=== PATIENT | male | born 1970 | race Hispanic/Latino ===

== ENCOUNTER 2018-01-05 05:46 | Emergency (ER) | payer OTHER ==
[2018-01-05 05:51] VITALS: O2SAT 96
[2018-01-05] MEDS ORDERED: DiphenhydrAMINE 50 mg/ml Inj ONE (05:59)
[2018-01-05] MEDS ORDERED: Sodium Chloride 0.9% 1,000 ML IV STA (06:09)
[2018-01-05] MEDS ORDERED: DiphenhydrAMINE 50 mg/ml Inj IVP STA (06:09)
--- NOTE | 2018-01-05 06:38 | ED PDOC ---
HPI: General Adult Time Seen by Provider: 01/05/18 05:48 Chief Complaint (Nursing): ENT Problem Chief Complaint (Provider): Throat Swelling History Per: Patient History/Exam Limitations: no limitations Onset/Duration Of Symptoms: Other (prior to arrival) Current Symptoms Are (Timing): Still Present Additional Complaint(s): 47 y/o male with a PMHx of HTN presenting for evaluation of throat swelling and resolved difficulty breathing prior to arrival. Patient states 2 days ago he was in [place] eating shellfish and this morning he was awoken because due to throat swelling and difficulty breathing. Patient reports his difficulty breathing has improved upon arrival to the ER. Patient denies any known allergies or new exposures besides the shellfish. Patient denies any current shortness of breath, or rash. PCP: Dr. Jimenes ([facility]) Past Medical History Reviewed: Historical Data, Nursing Documentation, Vital Signs Vital Signs: Last Vital Signs Temp 97.8 F 01/05/18 13:02 Pulse 79 01/05/18 13:02 Resp 20 01/05/18 13:02 BP 110/74 01/05/18 13:02 Pulse Ox 96 01/05/18 13:02 - Medical History PMH: HTN Denies: Asthma, Diabetes - Surgical History Surgical History: No Surg Hx - Family History Family History: States: Unknown Family Hx - Home Medications Home Medications: Ambulatory Orders Medication Instructions Recorded Valsartan [Valsartan] 11/19/15 Clindamycin [Cleocin] 300 mg PO QID 7 Days cap 01/05/18 Ibuprofen [Motrin] 600 mg PO TID 7 Days tab 01/05/18 predniSONE [predniSONE Tab] 20 mg PO BID 5 Days tab 01/05/18 - Allergies Allergies/Adverse Reactions: Allergies Allergy/AdvReac Type Severity Reaction Status Date / Time No Known Allergies Allergy Verified 12/11/15 07:31 Review of Systems ROS Statement: Except As Marked, All Systems Reviewed And Found Negative ENT: Positive for: Throat Swelling Respiratory: Negative for: Shortness of Breath Skin: Negative for: Rash Physical Exam - Reviewed Nursing Documentation Reviewed: Yes Vital Signs Reviewed: Yes - Physical Exam Appears: Positive for: Well, Non-toxic, No Acute Distress Head Exam: Positive for: ATRAUMATIC, NORMAL INSPECTION, NORMOCEPHALIC Skin: Positive for: Normal Color, Warm, Dry. Negative for: Rash Eye Exam: Positive for: EOMI, Normal appearance, PERRL ENT: Positive for: Other (mild uvular edema) Neck: Positive for: Normal, Painless ROM, Supple Cardiovascular/Chest: Positive for: Regular Rate, Rhythm. Negative for: Murmur Respiratory: Positive for: Normal Breath Sounds. Negative for: Respiratory Distress Gastrointestinal/Abdominal: Positive for: Normal Exam, Soft. Negative for: Tenderness Back: Positive for: Normal Inspection. Negative for: L CVA Tenderness, R CVA Tenderness, Vertebral Tenderness Extremity: Positive for: Normal ROM. Negative for: Pedal Edema, Deformity Neurologic/Psych: Positive for: Alert, Oriented. Negative for: Motor/Sensory Deficits - Laboratory Results Result Diagrams: 01/05/18 06:57 01/05/18 06:57 - ECG O2 Sat by Pulse Oximetry: 96 (RA) Pulse Ox Interpretation: Normal Medical Decision Making Medical Decision Making: A/P: 47 y/o male with a PMHx of HTN presenting with mild uvular swelling -Unclear if allergic reaction, possible viral or bacterial infection -Patient has no signs of anaphylaxis or imminent risk of airway compromise -Will provide Solu-Medrol, Benadryl, and reevaluate 07:[address] Kessler pending reevaluation ----- Scribe Attestation: Documented by Mauricio Jerome, acting as a scribe for aVldez Tavares MD. Provider Scribe Attestation: All medical record entries made by the Scribe were at my direction and personally dictated by me. I have reviewed the chart and agree that the record accurately reflects my personal performance of the history, physical exam, medical decision making, and the department course for this patient. I have also personally directed, reviewed, and agree with the discharge instructions and disposition. Disposition - Clinical Impression Clinical Impression: Uvulitis - Patient ED Disposition Is Patient to be Admitted: Transfer of Care - Disposition Referrals: Anthony Goncalves MD [Staff Provider] - 01/06/18 Disposition: Transfer of Care Disposition Time: 07:00 Condition: STABLE Additional Instructions: Return if not better in 3 days. Prescriptions: Clindamycin [Cleocin] 300 mg PO QID 7 Days cap Ibuprofen [Motrin] 600 mg PO TID 7 Days tab predniSONE [predniSONE Tab] 20 mg PO BID 5 Days tab Forms: [employer] (Peruvian), [facility] ED School/Work Excuse Patient Signed Over To: Rafa Kessler Handoff Comments: pending reevaluation
[2018-01-05 07:07] LABS: BASO # 0.1 K/uL (0.0-0.2); BASO % 0.8 % (0.0-2.0); EOS # 0.1 K/uL (0.0-0.7); EOS % 1.9 % (0.0-4.0); HEMOGLOBIN 15.9 g/dL (12.0-18.0); LYMPH # 2.1 K/uL (1.0-4.3); MEAN CELL VOLUME 88.9 fl (80.0-94.0); MEAN CORPUSCULAR HEMOGLOBIN 29.9 pg (27.0-31.0); MEAN CORPUSCULAR HGB CONC 33.6 g/dL (33.0-37.0); MEAN PLATELET VOLUME 8.6 fl (7.2-11.7); MONO # 0.6 K/uL (0.0-0.8); MONO % 8.9 % (0.0-10.0); NEUT # 3.7 K/uL (1.8-7.0); NEUT % 56.4 % (50.0-75.0); NRBC % 0.1 % (0.0-0.0); RBC 5.31 Mil/uL (4.40-5.90); RED CELL DISTRIBUTION WIDTH 13.5 % (11.5-14.5); WHITE BLOOD COUNT 6.5 K/uL (4.8-10.8)
[2018-01-05 07:12] LABS: BLOOD UREA NITROGEN 23 mg/dl (9-20); CALCIUM 9.2 mg/dL (8.4-10.2); GFR AFRICAN-AMERICAN > 60; GFR NON-AFRICAN AMERICAN > 60
--- NOTE | 2018-01-05 07:43 | ED PDOC ---
- Laboratory Results Result Diagrams: 01/05/18 06:57 01/05/18 06:57 Interpretation Of Abn Labs: 23 bun - ECG O2 Sat by Pulse Oximetry: 96 (RA) Pulse Ox Interpretation: Normal - CT Scan/US ct Other Rad Studies (CT/US): Read By Radiologist Other Rad Interpretation: no acute - Progress ED Course And Treament: 700: Took over care from Dr. Tavares. Ramírez on labs and imaging. Here with swelling of uvula. Stable and breathing well. No distress. Improved significantly from initial symptoms. 846: Feels better. Uvula mild enlarged. Will ct to identify if any further underlying inflammation. Spoke with Dr. Goncalves. States to dc with steroids and antibiotics if ct neg. 1240: Stable. AAOx3. Pain free. Had food and swallowed with no issues. No numbness or tingles. Disposition Counseled Patient/Family Regarding: Studies Performed, Diagnosis, Need For Followup, Rx Given - Clinical Impression Clinical Impression: Uvulitis - POA Present On Arrival: None - Disposition Referrals: Anthony Goncalves MD [Staff Provider] - 01/06/18 Disposition: Routine/Home Disposition Time: 12:49 Condition: STABLE Additional Instructions: Return if not better in 3 days. Prescriptions: Clindamycin [Cleocin] 300 mg PO QID 7 Days cap Ibuprofen [Motrin] 600 mg PO TID 7 Days tab predniSONE [predniSONE Tab] 20 mg PO BID 5 Days tab Forms: [employer] (Cameroonian), [facility] ED School/Work Excuse
[2018-01-05] MEDS ORDERED: Iohexol 300 100 ML IJ ONE (11:00)
[2018-01-05] MEDS ORDERED: Sodium Chloride 0.9% 50 ML IV ONE (11:00)
--- NOTE | 2018-01-05 12:11 | RAD ---
Date of service: 01/05/2018 PROCEDURE: Soft tissue neck HISTORY: Uvular swelling, r/o supraglottitis COMPARISON: No prior study available for comparison TECHNIQUE: AP and lateral views of the neck with soft tissue technique performed FINDINGS: Current study reveals no evidence of significant prevertebral soft tissue swelling. Epiglottis exhibits normal size. No significant enlargement of the palatine tonsils or adenoids. No obvious radiopaque foreign bodies are identified. Airway is patent Vertebral bodies intact. No significant degenerative spondylosis IMPRESSION: Unremarkable soft tissue examination of the neck
--- NOTE | 2018-01-05 12:30 | CT ---
Date of service: 01/05/2018 PROCEDURE: CT NECK WITH CONTRAST HISTORY: Evaluate for uvulitis and underlying inflammation COMPARISON: None TECHNIQUE: CT of the neck with intravenous contrast. Coronal and sagittal reformats generated. Intravenous contrast dose: 95 cc Omnipaque 300 all Radiation dose: DLP 475.48 mGy-cm This CT exam was performed using one or more of the following dose reduction techniques: Automated exposure control, adjustment of the mA and/or kV according to patient size, and/or use of iterative reconstruction technique. FINDINGS: NASOPHARYNX: Unremarkable. SUPRAHYOID NECK: Unremarkable oropharynx, oral cavity, parapharyngeal space and retropharyngeal space. INFRAHYOID NECK: Unremarkable larynx, hypopharynx, and supraglottic space. Vocal cords intact. Normal-appearing epiglottis MASS: None. GLANDS: Parotid and submandibular glands unremarkable. Normal size thyroid gland, without nodule. LYMPH NODES: Normal. No lymphadenopathy. CERVICAL SPINE: No fracture or focal lesion. VASCULAR STRUCTURES: Unremarkable. OTHER FINDINGS: None. IMPRESSION: Unremarkable contrast enhanced CT of the neck.
[2018-01-05 14:33] VITALS: BP 110/74; PULSE 79; RESP 20; TEMP 97.8
== END 2018-01-05 13:02 | disposition home or self-care (01) ==
LOC: H.ER 05:46
DX: K12.2 Cellulitis and abscess of mouth (principal); I10 Essential (primary) hypertension
CPT/HCPCS: 70360; 70491; 80048; 85025; 87070; 87430; 96374; 96375; 99284; J1200; J2930; J7030; Q9967